=== PATIENT | female | born 1950 | race Caucasian/White ===

== ENCOUNTER 2017-07-28 13:58 | Inpatient (IN) | payer OTHER, BC ==
[~2017-07-28] VITALS: Ht 167.6 cm; Wt 108.9 kg
--- NOTE | ~2017-07-28 | 2DMMODE ---
[facility] [address] [facility] [place] [address] 2 D/M-MODE ECHOCARDIOGRAM Name: STEPHANIE OTTO Room #: 409-P ADM IN M.R.#: [id number] Admission: 07/28/17 Attend Phys: Dennis Gonzales MD Discharge: Date of : 52 Date of Service: 07/29/17 1610 Report #: [id number] THIS REPORT FOR: //name// APPROVED REPORT Study performed: 07/29/2017 14:53:07 EXAM: Comprehensive 2D, Doppler, and color-flow Echocardiogram Patient Location: Echo lab Room #: 409 Status: routine BSA: 2.14 HR: 86 bpm BP: 115/60 mmHg Rhythm: NSR Other Information Study Quality: Adequate Indications Short of breath, chest pressure. Hx: HTN, COPD, morbid obesity 2D Dimensions RVDd: 32.43 mm LVEF(%): 61.88 (>50%) IVSd: 13.00 (7-11mm) LVOT Diam: 22.36 (18-24mm) LVDd: 51.55 mm PWd: 11.00 (7-11mm) Ascending Ao: 31.42 (22-36mm) LVDs: 34.28 (25-40mm) Aortic Root: 30.26 mm Batista's LVEF: 61.88 % Volumes Left Atrial Volume (Systole) Single Plane 4CH: 32.95 mL Single Plane 2CH: 41.20 mL LA ESV Index: 21.00 mL/m2 Aortic Valve AoV Peak Shawn.: 1.40 m/s AO Peak Gr.: 7.85 mmHg LVOT Max P.59 mmHg LVOT Max V: 1.07 m/s OSWALD Vmax: 3.00 cm2 Mitral Valve E/A Ratio: 0.7 MV Decel. Time: 160.51 ms [facility] [employer] [place] [address] 2 D/M-MODE ECHOCARDIOGRAM Name: FAMSTEPHANIE JOHNNY Room #: 409-P [facility] IN .R.#: [id number] Admission: 07/28/17 Attend Phys: Dennis Gonzales MD Discharge: Date of : 52 Date of Service: 07/29/17 1610 Report #: [id number] MV E Max Shawn.: 0.77 m/s MV A Shawn.: 1.07 m/s MV PHT: 46.55 ms IVRT: 93.43 ms Pulmonary Valve PV Peak Shawn.: 1.45 m/s PV Peak Gr.: 8.43 mmHg Pulmonary Vein P Vein S: 0.89 m/s P Vein D: 0.58 m/s P Vein S/D Ratio: 1.53 Tricuspid Valve TR Peak Shawn.: 2.80 m/s RAP Estimate: 5.00 mmHg TR Peak Gr.: 31.46 mmHg PA Pressure: 36.00 mmHg Left Ventricle The left ventricle is normal size. There is normal LV segmental wall motion. Mild concentric left ventricular hypertrophy. Left ventricular systolic function is normal. LVEF is 60-65%. Mild diastolic dysfunction is present (impaired relaxation pattern). Right Ventricle The right ventricle is normal size. The right ventricular systolic function is normal. Atria The left atrium size is normal. The right atrium size is normal. Aortic Valve The aortic valve is normal in structure. Trace aortic regurgitation. There is no aortic valvular stenosis. Mitral Valve The mitral valve is normal in structure. Trace to mild mitral regurgitation. Tricuspid Valve The tricuspid valve is normal in structure. Trace tricuspid regurgitation. Estimated PAP is 35-40mmHg. Pulmonic Valve [address] [address] 2 D/M-MODE ECHOCARDIOGRAM Name: STEPHANIE OTTO Room #: 409-P [facility] IN .R.#: [id number] Admission: 07/28/17 Attend Phys: Dennis Gonzales MD Discharge: Date of : 52 Date of Service: 07/29/17 1610 Report #: [id number] The pulmonary valve is normal in structure. Trace pulmonic regurgitation. Great Vessels The aortic root is normal in size. The ascending aorta is normal in size. IVC is normal in size and collapses >50% with inspiration. Pericardium There is no pericardial effusion. <Conclusion> The left ventricle is normal size. LVEF is 60-65%. The aortic valve is normal in structure. Trace aortic regurgitation. The mitral valve is normal in structure. Trace to mild mitral regurgitation. The tricuspid valve is normal in structure. Trace tricuspid regurgitation. Estimated PAP is 35-40mmHg. The pulmonary valve is normal in structure. Trace pulmonic regurgitation. There is no pericardial effusion. <ELECTRONICALLY SIGNED> By: Harlan Bains MD 07/29/17 161 09 09 Harlan Bains MD /INF
--- NOTE | ~2017-07-28 | CATHLAB ---
[facility] [address] [place] [address] INVASIVE PROCEDURE REPORT Name: STEPHANIE OTTO Room #: 409-P [facility] IN ..#: [id number] Admission: 07/28/17 Attend Phys: Dennis Gonzales MD Discharge: 07/31/17 Date of : 52 Date of Service: 08/03/17 1242 Report #: [id number] THIS REPORT FOR: //name// APPROVED REPORT Study performed: 07/31/2017 10:06:59 Patient Details Patient Status: In-Patient Room #: The patient is a 67 year-old female Event Personnel Harlan Bains Senior Construction Manager, Krzysztof Castro RN, Lynsey Travis Sandifer, David Monitor, Kline, Tiffany RN civil rights attorney Performed Left Heart Cath w/or w/o Coronaries [id number] [facility] Indication Abnormal ECG, Positive stress test Procedure Narrative The Right Groin^ was infiltrated with 1% Lidocaine subcutaneous anesthesia. A PINNACLE 4FR Sheath #[id number] sheath was inserted into the RFA^. Coronary angiography was performed using coronary diagnostic catheters. The right coronary system was accessed and visualized with a JR4 catheter. The left coronary system was accessed and visualized with a JL4 catheter. The left ventricle was accessed and visualized with a PIGTAIL catheter. Left ventricular/Aortic Valve gradient assessed via catheter pullback. Hemostasis was obtained with manual pressure following sheath removal without any complications. The patient tolerated the procedure well and there were no complications associated with the procedure. There was no hematoma. Intraoperative Conscious Sedation Sedation start time: 10.23 Case end Time: 10.33 Versed 2 mg Fluoro Time: 1.40 minutes Dose: DAP 2465 cGycm2 363 mGy Contrast Type and Amount: Omnipaque 50 ml [facility] [place] [address] INVASIVE PROCEDURE REPORT Name: STEPHANIE OTTO Room #: 409-[facility].#: [id number] Admission: 07/28/17 Attend Phys: Dennis Gonzales MD Discharge: 07/31/17 Date of : 52 Date of Service: 08/03/17 1242 Report #: [id number] Coronary Angiography The patient's coronary anatomy is right dominant. Diagnostic Cath Left Main Left main is of normal origin and caliber bifurcates left anterior descending left circumflex free of high-grade disease LAD Moderate caliber type II vessel which is quite tortuous in its course. He gives a susceptible diagonal branches all of which are free of high-grade disease. The LAD courses in the interventricular sulcus without significant stenotic lesions but a serpentine course as it terminates in the apex Diagonal 1 Small to moderate caliber vessel free of high-grade disease Circumflex Moderate caliber nondominant vessel which gives rise to 2 marginal branches as it terminates posteriorly a small vessel. No high-grade stenosis are noted OM1 Her caliber vessel coursing on the lateral aspect of the heart without significant stenotic lesions OM2 Small-caliber vessel without significant stenosis coursing on the posterior lateral aspect of the left ventricle Right Coronary Moderate caliber vessel of normal origin and gives rise to RV branches in its proximal course and then proceeds to the crux of the heart were gives rise to posterior descending artery and small terminal RCA beyond. All of which are free of significant stenotic lesions R PDA Moderate caliber nondominant vessel coursing towards the apex without significant stenotic or flow-limiting lesions noted Left Ventriculography Left Ventriculography was not performed. Hemodynamics The aortic pressure is 165/80 mmHg with a mean of 113 mmHg. The left ventricular pressure is 158/13 mmHg with a mean of mmHg. The left ventricular end diastolic pressure is 28 mmHg. There was no gradient across the aortic valve upon pullback. Pullback from the left ventricle to the aorta revealed no gradient across the aortic valve. Conclusion 1. Essentially normal coronary arteries 2. Normal hemodynamics [facility] [address] [place] [address] INVASIVE PROCEDURE REPORT Name: STEPHANIE OTTO Room #: 409-P [facility] IN M.R.#: [id number] Admission: 07/28/17 Attend Phys: Dennis Gonzales MD Discharge: 07/31/17 Date of : 52 Date of Service: 08/03/17 1242 Report #: [id number] Recommendations Cardiac Risk Reduction Program <ELECTRONICALLY SIGNED> By: Harlan Bains MD 08/03/17 1242 124 41 Harlan Bains MD /INF
--- NOTE | ~2017-07-28 | EKG ---
[place] [address] [facility] [place] [address] ELECTROCARDIOGRAM REPORT Name: STEPHANIE OTTO Room #: 409-P ADM IN M.R.#: [id number] Admission: 07/28/17 Attend Phys: Dennis Gonzales MD Discharge: Date of : 52 Report #: [id number] THIS REPORT FOR: //name// [facility] ED Test Date: 2017-07-28 Test Time: 14:48:31 Pat Name: STEPHANIE OTTO Department: Room: Gender: F Mold Cl[employer] Helper: TALON : 1950 Requested By: Serjio Fay Order Number: [id number] MD: Emir Davey Measurements Intervals [place] Rate: 101 P: 67 OK: 191 QRS: -17 QRSD: 83 T: 77 QT: 372 QTc: 483 Interpretive Statements Sinus tachycardia Borderline left axis deviation Borderline prolonged QT interval Compared to ECG 12/13/2010 16:37:33 Heart rate has increased Electronically Signed On 07-29-2017 8:04:20 CDT by Emir Davey [email or web address] <ELECTRONICALLY SIGNED> By: Emir Davey MD, [facility] 07/29/17 0804 144 47 Emir Davey MD, [facility] /EPI
[~2017-07-28 13:58] MED LIST: ASACOL400 MG PO; CALCIUM 600 +1 EAC1 PO; COLESTID1 GM PO; GLUCOSAMINE &1 EACH PO; PENTASA500 MG PO; POTASSIUM-9999 MG PO; SYNTHROID175 MCG PO; VICODIN 5-5001 EACH PO
[2017-07-28 14:01] VITALS: BP 123/81
[2017-07-28 14:21] LABS: ABSOLUTE NEUTROPHILS 5.9 thou/uL (1.4-8.2); BASOPHILS 0.2 % (0.0-2.0); EOSINOPHILS 0.2 % (0.0-3.0); HEMATOCRIT 39.1 % (37.0-47.0); HEMOGLOBIN 13.1 gm/dL (12.0-15.0); LYMPHOCYTES 5.2 % (24.0-44.0); MCH 31.2 pg (26.0-34.0); MCHC 33.5 g/dL (28.0-37.0); MCV 93.2 fL (80.0-100.0); MONOCYTES 6.7 % (1.0-8.0); PLATELET COUNT 204 thou/uL (150-400); POLYS 87.7 % (36.0-66.0); RDW 15.9 % (10.5-14.5); WBC 6.7 thou/uL (4.0-11.0)
[2017-07-28 14:28] LABS: CALCIUM 9.6 mg/dL (8.5-10.1); CREATININE 0.7 mg/dL (0.6-1.0); POTASSIUM 3.7 mmol/L (3.5-5.1)
[2017-07-28 14:35] LABS: ALBUMIN 3.3 g/dL (3.4-5.0); DIRECT BILIRUBIN 0.3 mg/dL (<0.1-0.3); TOTAL BILIRUBIN 1.3 mg/dL (<0.1-1.0); TOTAL PROTEIN 6.2 g/dL (6.4-8.2)
[2017-07-28] MEDS ORDERED: SULFASALAZINE500 M5 PO (14:40)
[2017-07-28] MEDS ORDERED: FOLIC ACID1 MG PO (14:40)
[2017-07-28] MEDS ORDERED: SYNTHROID175 MCG PO (14:41)
[2017-07-28] MEDS ORDERED: HYDROCHLOROTHIA25 M2 PO (14:41)
[2017-07-28] MEDS ORDERED: TUMS PO (14:42)
[2017-07-28] MEDS ORDERED: VITAMIN D3400 UNIT PO (14:42)
[2017-07-28 14:58] LABS: URINE BLOOD NEGATIVE (Negative); URINE CLARITY CLEAR; URINE COLOR YELLOW; URINE GLUCOSE-RANDOM* NEGATIVE (Negative); URINE KETONES NEGATIVE (Negative); URINE LEUKOCYTES 1+ (Negative); URINE NITRITE NEGATIVE (Negative); URINE PROTEIN (DIPSTICK) NEGATIVE (Negative); URINE SPECIFIC GRAVITY 1.015 (1.005-1.035); URINE UROBILINOGEN 0.2 E.U./dl (0.2-1.0)
[2017-07-28 15:00] LABS: ICTOTEST (BILI CONFIRMATORY) Negative (Negative); URINE BILIRUBIN NEGATIVE (Negative)
[2017-07-28 15:09] LABS: CASTS None Seen /LPF (None Seen); CRYSTALS None Seen /LPF (None Seen); SQUAMOUS 4-10 Moderate /LPF (0-3); URINE RBC None Seen /HPF (0-2); URINE WBC 6-15 Few /HPF (0-5)
[2017-07-28 18:25] VITALS: BP 127/64
[2017-07-28 19:08] VITALS: BP 121/72
[2017-07-28 20:00] VITALS: BP 119/48
[2017-07-28 20:08] LABS: MAGNESIUM 1.9 mg/dL (1.8-2.4); TROPONIN-I < 0.04 ng/mL (<0.06)
[2017-07-28 20:18] LABS: APTT 29.9 Seconds (24.5-32.8); D-DIMER 0.6 ug/mLFEU (0.19-0.50); PROTIME 10.2 Seconds (9.3-11.4)
[2017-07-28] MEDS ORDERED: IMURAN 50MG TAB50 M1 PO (20:22)
[2017-07-28 21:43] LABS: BE(vivo) 4.9 mmol/L (-2 to +3); HCO3 29.2 mmol/L (22.0-26.0); sO2 92.6 % (92.0-98.0)
[2017-07-29 04:08] VITALS: BP 121/51
[2017-07-29 05:29] LABS: ABSOLUTE NEUTROPHILS 5.5 thou/uL (1.4-8.2); BASOPHILS 0.9 % (0.0-2.0); HEMATOCRIT 35.9 % (37.0-47.0); HEMOGLOBIN 11.9 gm/dL (12.0-15.0); LYMPHOCYTES 6.3 % (24.0-44.0); MCH 31.5 pg (26.0-34.0); MCHC 33.1 g/dL (28.0-37.0); MCV 95.2 fL (80.0-100.0); PLATELET COUNT 229 thou/uL (150-400); POLYS 90.8 % (36.0-66.0); RBC 3.77 mil/uL (4.20-5.00); RDW 16.1 % (10.5-14.5)
[2017-07-29 05:51] LABS: ANION GAP 12 mmol/L (7-16); BUN 10 mg/dL (7-18); CALCIUM 8.3 mg/dL (8.5-10.1); CHLORIDE 103 mmol/L (98-107); CO2 26 mmol/L (21-32); CREATININE 0.9 mg/dL (0.6-1.0); GLUCOSE 121 mg/dL (74-106); MAGNESIUM 1.9 mg/dL (1.8-2.4); POTASSIUM 3.2 mmol/L (3.5-5.1); SODIUM 141 mmol/L (136-145); TROPONIN-I < 0.04 ng/mL (<0.06)
[2017-07-29 07:37] VITALS: BP 115/60
[2017-07-29 20:23] VITALS: BP 121/73
[2017-07-30 04:48] VITALS: BP 140/80
[2017-07-30 06:06] LABS: HEMATOCRIT 30.4 % (37.0-47.0); HEMOGLOBIN 10.1 gm/dL (12.0-15.0); MCH 31.7 pg (26.0-34.0); MCHC 33.3 g/dL (28.0-37.0); MCV 95.2 fL (80.0-100.0); RBC 3.2 mil/uL (4.20-5.00); RDW 16.6 % (10.5-14.5); WBC 4.5 thou/uL (4.0-11.0)
[2017-07-30 06:12] LABS: CALCIUM 8.1 mg/dL (8.5-10.1); CREATININE 0.6 mg/dL (0.6-1.0); POTASSIUM 3.7 mmol/L (3.5-5.1)
[2017-07-30 09:29] VITALS: BP 144/78
[2017-07-30 15:58] VITALS: BP 129/63
[2017-07-30 20:00] VITALS: BP 128/65
[2017-07-31] VITALS (12 sets, daily range): BP systolic 138–171; BP diastolic 71–102
[2017-07-31 11:29] LABS: HEMATOCRIT 32.3 % (37.0-47.0); HEMOGLOBIN 10.9 gm/dL (12.0-15.0); MCH 32.1 pg (26.0-34.0); MCHC 33.9 g/dL (28.0-37.0); MCV 94.7 fL (80.0-100.0); RBC 3.41 mil/uL (4.20-5.00)
[2017-07-31 11:45] LABS: % SATURATION 24 % (20-39); IRON 46 ug/dL (50-170); TIBC 191 ug/dL (250-450)
[2017-07-31] MEDS ORDERED: PROTONIX40 M1 PO (13:31)
[2017-07-31] MEDS ORDERED: CIPRO500 MG PO (13:31)
[2017-07-31] MEDS ORDERED: FLAGYL500 MG PO (13:31)
== END 2017-07-31 14:53 | disposition home or self-care (01) | DRG 385 ==
LOC: ER 13:58 → EROBS 18:03 → 4N 18:03 → ENTRNSPT 07-31 14:49 → EDTRNSPTSTS 07-31 14:50 → 4N 07-31 14:53
PROVIDERS: Emergency Medicine; Hospitalist; Internal Medicine Gastroenterology; Nurse Practitioner
PROC: 4A023N7 Measurement of Cardiac Sampling and Pressure, Left Heart, Percutaneous Approach (ICD-10-PCS; principal; 2017-07-31)
DX: K50.90 Crohn's disease, unspecified, without complications (principal); J96.01 Acute respiratory failure with hypoxia; N39.0 Urinary tract infection, site not specified; R18.8 Other ascites; K52.9 Noninfective gastroenteritis and colitis, unspecified; E03.9 Hypothyroidism, unspecified; J44.9 Chronic obstructive pulmonary disease, unspecified; I10 Essential (primary) hypertension; K21.9 Gastro-esophageal reflux disease without esophagitis; K57.90 Diverticulosis of intestine, part unspecified, without perforation or abscess without bleeding; Z90.710 Acquired absence of both cervix and uterus; Z88.0 Allergy status to penicillin; Z87.891 Personal history of nicotine dependence; Z79.899 Other long term (current) drug therapy
CPT/HCPCS: 10091

== ENCOUNTER → 2018-03-19 | Outpatient (CLI) | payer OTHER, BC ==
[~2018-03-19] VITALS: Ht 167.6 cm; Wt 97.5 kg
[~2018-03-19] MED LIST changes: +AZATHIOPRINE50 MG PO; +CIPRO500 MG PO; +FLAGYL500 MG PO; +FOLIC ACID1 MG PO; +HYDROCHLOROTHIA25 M2 PO; +IMURAN 50MG TAB50 M1 PO; +PROTONIX40 M1 PO; +SULFASALAZINE500 M5 PO; +TUMS PO; +VITAMIN D3400 UNIT PO
[2018-03-19 08:13] VITALS: BP 140/87
[2018-03-19 08:28] LABS: HEMATOCRIT 36.4 % (37.0-47.0); MCH 28.7 pg (26.0-34.0); RBC 4.18 mil/uL (4.20-5.00); RDW 17.7 % (10.5-14.5); WBC 8.2 thou/uL (4.0-11.0)
[2018-03-19 08:42] LABS: APTT 34.1 Seconds (24.5-32.8); PROTIME 10.9 Seconds (9.3-11.4)
[2018-03-19 08:45] LABS: CALCIUM 9.2 mg/dL (8.5-10.1); CREATININE 0.8 mg/dL (0.6-1.0); POTASSIUM 3.1 mmol/L (3.5-5.1)
[2018-03-19 09:10] VITALS: BP 142/91
[2018-03-19 09:33] VITALS: BP 157/74
[2018-03-19 09:35] VITALS: BP 142/80
[2018-03-19 09:40] VITALS: BP 141/86
--- NOTE | 2018-03-19 10:15 | NUR ---
PT BACK FROM IR, SMALL BANDAID UPPER ABDOMEN, PT ALERT AND ORIENTED X 3, DENIES PAIN, VSS, WILL CONTINUE TO MONITOR.
--- NOTE | 2018-04-16 16:50 | PATH ---
[facility] [place] [address] PATHOLOGY RPT PROCEDURE Name: STEPHANIE OTTO Room #: REG Beth MSusanR.#: [id number] ������������������ Admission: 03/19/18 ������������������ Date of : 52 Discharge: Report #: [id number] Path Case #: [id number] [facility] Accession Number: [id number] . 01 Material submitted: . LIVER BX . 01 Clinical history: . Liver lesion . 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 PLEASE SEE COMMENT. . . SYNOPTIC FOR NON-HODGKIN LYMPHOMA/LYMPHOID NEOPLASMS: Biopsy . Specimen ___ Other (specify): Liver Procedure ___ Biopsy Tumor Site ___ Other tissue or organ: Liver Histologic Type ___ Mature B-cell neoplasms ___ Other (specify): High grade B-cell lymphoma Immunophenotyping (flow cytometry and/or immunohistochemistry) ___ Performed Specify method and results: Immunohistochemical stains (please see comment) + Cytogenetic Studies + ___ Not performed + Molecular Genetic Studies + ___ Not performed LB/03/24/2018 . 02 Comment: Examination of the liver biopsy shows proliferation of medium to large sized neoplastic lymphoid cells with fairly round to slightly irregular nuclear borders, occasional prominent nucleoli, and small to moderate amount of cytoplasms. Background mitotic figures are identified. Immunohistochemical stains with appropriate controls show: . (Block A1) CD45 - Positive Vimentin - Positive CD20 - Positive [address] [address] PATHOLOGY RPT PROCEDURE Name: STEPHANIE OTTO Room #: REG [facility]..#: [id number] ������������������ Admission: 03/19/18 ������������������ Date of : 52 Discharge: Report #: [id number] Path Case #: [id number] BCL-6 - Positive CD10 - Negative BCL-2 - Negative CD3 - Highlights T-lymphoid cells CD5 - Highlights T-lymphoid cells BCL-1 - Negative AE1-AE3 - Negative MART-1 - Negative CK7 - Negative CK20 - Negative MUM-1 - Negative Ki-67 - Approximately 80-90% proliferation fraction . Based on the morphology and immunohistochemical staining pattern, these findings are consistent with involvement by high grade B cell lymphoma,favor diffuse large B-cell lymphoma. FISH for agressive B cell lymphoma is pending to exclude or rule in the possibility of double or triple hit lymphoma and an addendum report will be submitted separately. . Dr. Luna Ashley discussed preliminary findings with Dr. Dennis on 03/24/18 at 1:30 pm. (JMGricel/db; 03/24/18) . Co-review: Dr. Priscilla Greenfield and Dr. Luna Ashley . . 02 Addendum: . Special studies report received from [facility], [address] [place] [address], [address], [place], [address], on case [id number], labeled with their number [id number], dated 04/02/2018. . Fluorescence in situ Hybridization (FISH) Report [employer]Gene Analysis . RESULT: No assay specific abnormalities detected by Aggressive B-cell Lymphoma FISH panel. . Specimen Type: Tissue, Liver . Indication for Study: B-cell lymphoma . INTERPRETATION: Fluorescence in situ hybridization (FISH) analysis was performed on this patient's specimen using DNA probes for aggressive B-cell lymphoma panel. One hundred interphase nuclei were examined for each probe and the signal patterns did not reveal any assay specific abnormalities. Based on the performance characteristics established on this assay, all test values [address] [address] PATHOLOGY RPT PROCEDURE Name: STEPHANIE OTTO Room #: REG [facility].#: [id number] ������������������ Admission: 03/19/18 ������������������ Date of : 52 Discharge: Report #: [id number] Path Case #: [id number] were within the normal reference range. . Genetic changes other than those assayed here cannot be ruled out on the basis of this testing. Correlation with cytogenetic, clinical and hematopathological findings is suggested for a complete interpretation of the results. . The following [employer] FISH analysis was performed on this patient's specimen: Probe Detection Parameters Result ISCN BCL2 (18q21) Detects a rearrangement Not Detected nuc yoselyn(5'BCL2, of the BCL2 gene 3'BCL2)x2(5'BCL2 con 3'BCL2x2) (100) MYC (8q24) Detects a rearrangement Not Detected nuc yoselyn(5'MYC, of the MYC gene 3'MYC)x2(5'MYC con 3'MYCx2)(100) BCL6 (3q27) Detects a rearrangement Not Detected nuc yoselyn(5'BCL6, of the BCL6 gene 3'BCL6)x2(5'BCL6 con 3'BCL6x2)(100) . . Electronically Signed by Amanda Deal, PhD, [facility] on 04/02/2018 at [facility], [facility]. Amanda Deal, PhD, FAC Director of Clinical Cytogenetics . Methodology: The patient specimen is processed onto a glass slide. Fluorescent DNA probe(s) is(are) applied to the cells on the slide under conditions of denaturation followed by hybridization. Stringency washes are applied and the slide is subsequently counterstained. A minimum of 100 interphase nuclei are analyzed unless otherwise indicated above. . Intended Use: This assay is considered qualitative and is not intended to be used as a measure of quantitative comparison. . Disclaimer This Test was performed by [facility], [facility]. at [address] [place] [address], [id number]. [facility] [employer] is a business unit of [employer] a wholly-owned subsidiary of [employer]. . . Any images(s) that accompany this report is/are a sales support representative image(s) only and should not be used to render a diagnosis. [facility] [place] [address] [place] [address] PATHOLOGY RPT PROCEDURE Name: STEPHANIE OTTO [facility] [id number] ������������������ Admission: 03/19/18 ������������������ Date of : 52 Discharge: Report #: [id number] Path Case #: [id number] . This test was developed and its performance characteristics determined by [facility] It has not been cleared or approved by the Food and Drug Administration. . A complete copy of the report is on file. . Professional services performed by [employer] at [address], [place] [address]. Technical services performed by [employer], [facility]. at [address], [place] [address]. . (AMJ 04/05/2018) JQC/04/05/2018 Addendum Electronically Signed by Rosa Rascon MD ([facility]) . 02 Electronically signed: . Rosa Rascon MD, Pathologist NPI- [id number] . 01 Gross description: . The specimen is received in formalin, labeled "Stephanie Otto, liver BX" and consists of 3 needle cores of cazares-brown tissue measuring 1.7 cm in length and 0.1 cm each in diameter which are entirely submitted in A1. (SDY; 03/19/2018) SYU/SYU . 02 Pathologist provided ICD-10: C85.19 . 02 CPT . 037204 Specimen Comment: A courtesy copy of this report has been sent to Specimen Comment: [phone]. Specimen Comment: Report sent to Specimen Comment: A duplicate report has been generated due to demographic updates. Performed at: [address], [place], [place] [id number] MD Thierno Jones MD Phone: [phone] Performed at: 02 [facility] [address] [place] [address], [place], [place] [id number] MD Rosa Rsacon MD Phone: [phone]
== END | disposition home or self-care (01) ==
LOC: ULTRA 07:45
DX: C85.19 Unspecified B-cell lymphoma, extranodal and solid organ sites (principal); E03.9 Hypothyroidism, unspecified; K50.90 Crohn's disease, unspecified, without complications; I10 Essential (primary) hypertension; J44.9 Chronic obstructive pulmonary disease, unspecified; Z85.828 Personal history of other malignant neoplasm of skin; Z90.710 Acquired absence of both cervix and uterus; Z90.49 Acquired absence of other specified parts of digestive tract; Z87.19 Personal history of other diseases of the digestive system; Z98.890 Other specified postprocedural states; Z79.899 Other long term (current) drug therapy; Z87.891 Personal history of nicotine dependence; Z88.0 Allergy status to penicillin

== ENCOUNTER → 2019-04-05 | Outpatient (CLI) | payer OTHER, BC ==
--- NOTE | 2019-04-09 15:05 | PFR/MVV ---
[facility] [place] [address] PULMONARY FUNCTION MVV/REPORT Name: STEPHANIE OTTO Room #: REG [facility]#: [id number] Admission: 04/05/19 Attend Phys: Valeria Moreno MD Discharge: Date of : 52 Report #: [id number] THIS REPORT FOR: //name// >> SPIROMETRY: (BTPS) Height: in cm Weight: lbs kg Exam Date: PRE-RX POST-RX PRED BEST %PRED BEST %PRED %CHG FVC LITERS . . . . . . FEV1 LITERS . . . . . . FEV1/FVC % . . . . . . RXR29-41% L/Sec . . . . . . PEF L/SEC . . . . . . FEF50/FIF50 UNITLESS . . . . . . MVV L/Min . . . f 1/Min . . . >> LUNG VOLUMES: (BTPS) PRE-RX POST-RX PRED AVG %PRED AVG %PRED %CHG VC Liters . . . . . . TLC Liters . . . . . . RV Liters . . . . . . RV/TLC % . . . . . . FRC PL Liters . . . . . . FRC N2 Liters . . . . . . ERV Liters . . . . . . IC Liters . . . . . . >> DIFFUSION: DLCO ml/Min/mmHg . . . . . . DL Nathalia ml/Min/mmHg . . . . . . DLCO/VA ml/Min/mmHg . . . . . . VA Liters . . . . . . COMMENTS: COMMENTS: >> RESISTANCE: [facility] [address] [place] [address] PULMONARY FUNCTION MVV/REPORT Name: STEPHANIE OTTO Room #: REG [facility]#: [id number] Admission: 04/05/19 Attend Phys: Valeria Moreno MD Discharge: Date of : 52 Report #: [id number] PRE-RX PRED AVG %PRED Raw Total cmH20/L/Sec . . . Raw Insp cmH20/L/Sec . . . Raw Exp cmH20/L/Sec . . . Raw cmH20/L/Sec . . . Gaw L/Sec/cmH20 . . . sRaw cmH20 Sec . . . sGaw l/cmH20 Sec . . . Vtq Liters . . . # = OUTSIDE 95% CONFIDENCE INTERVAL CALIBRATION: PRED: 3.00 ACTUAL: EXP 3.01 INSP 3.02 [facility]-OL11-21 [facility]- N-1804-4 >> INTERPRETATION/IMPRESSION: CC: Valeria Moreno Claudia Rivas DATE OF SERVICE: 04/05/2019 PHYSICIAN: Valeria Moreno MD SPIROMETRY: FEV1 is 1.06 liters (47%), FVC is 1.76 liters (56%). Post-bronchodilator therapy FEV1 increased to 1.23 liters (16% change), FVC increased to 2.04 liters (15% change), FEV1/FVC ratio 60%. LUNG VOLUMES: Total lung capacity is 4.38 liters (84%). RV is 1.97 liters (95%). Diffusing capacity 75%. IMPRESSION: Pulmonary function studies are consistent with a severe obstructive airflow defect, with normal lung volumes. There is a significant response to bronchodilator therapy. Diffusing capacity is mildly decreased. <ELECTRONICALLY SIGNED> By: Manish Flores MD 04/09/19 1505 Manish Flores MD /nt
== END ==
LOC: PUL 06:47
DX: C83.39 Diffuse large B-cell lymphoma, extranodal and solid organ sites (principal)

== ENCOUNTER → 2019-07-25 | Outpatient (CLI) | payer OTHER, BC | LOC: SJCVCIMAG 10:39 | PROVIDERS: ATTEND Internal Medicine Cardiovascular Disease | DX: I08.1 Rheumatic disorders of both mitral and tricuspid valves (principal); I44.4 Left anterior fascicular block; R94.31 Abnormal electrocardiogram [ECG] [EKG]; I42.9 Cardiomyopathy, unspecified; I49.49 Other premature depolarization; R00.0 Tachycardia, unspecified; I11.0 Hypertensive heart disease with heart failure; I50.1 Left ventricular failure, unspecified; Z90.49 Acquired absence of other specified parts of digestive tract; Z79.899 Other long term (current) drug therapy; Z87.891 Personal history of nicotine dependence ==

== ENCOUNTER → 2019-08-03 | Outpatient (CLI) | payer OTHER, BC | LOC: SJCVC 12:44 | PROVIDERS: ATTEND Internal Medicine Cardiovascular Disease | DX: I42.9 Cardiomyopathy, unspecified (principal); Z87.891 Personal history of nicotine dependence; I10 Essential (primary) hypertension; Z88.0 Allergy status to penicillin ==

== ENCOUNTER → 2019-08-17 | Outpatient (CLI) | payer OTHER, BC | LOC: SJCVCIMAG 10:43 → SJCVC 10:43 | PROVIDERS: ATTEND Internal Medicine Cardiovascular Disease | DX: M79.604 Pain in right leg (principal); M79.605 Pain in left leg; R60.9 Edema, unspecified; I44.4 Left anterior fascicular block; R94.31 Abnormal electrocardiogram [ECG] [EKG]; I11.0 Hypertensive heart disease with heart failure; I50.9 Heart failure, unspecified; I42.9 Cardiomyopathy, unspecified; I10 Essential (primary) hypertension; Z79.899 Other long term (current) drug therapy; Z82.49 Family history of ischemic heart disease and other diseases of the circulatory system; Z87.891 Personal history of nicotine dependence ==

== ENCOUNTER → 2019-08-24 | Outpatient (CLI) | payer OTHER, BC | LOC: SJCVC 08:53 | PROVIDERS: ATTEND Internal Medicine Cardiovascular Disease | DX: Z51.81 Encounter for therapeutic drug level monitoring (principal); Z79.01 Long term (current) use of anticoagulants ==

== ENCOUNTER → 2019-10-18 | Outpatient (CLI) | payer OTHER, BC | LOC: SJCVC 09:47 | PROVIDERS: ATTEND Internal Medicine Cardiovascular Disease | DX: I42.8 Other cardiomyopathies (principal); I11.0 Hypertensive heart disease with heart failure; I50.9 Heart failure, unspecified; Z87.891 Personal history of nicotine dependence ==

== ENCOUNTER → 2019-10-20 | Outpatient (CLI) | payer OTHER, BC | LOC: SJCVC 13:33 | PROVIDERS: ATTEND Internal Medicine Cardiovascular Disease | DX: I25.89 Other forms of chronic ischemic heart disease (principal); I10 Essential (primary) hypertension; I42.9 Cardiomyopathy, unspecified; R00.0 Tachycardia, unspecified; R60.9 Edema, unspecified; Z88.0 Allergy status to penicillin; Z90.49 Acquired absence of other specified parts of digestive tract ==

== ENCOUNTER → 2020-01-19 | Outpatient (CLI) | payer OTHER, BC | LOC: SJCVCIMAG 10:11 | PROVIDERS: ATTEND Internal Medicine Cardiovascular Disease | DX: I08.1 Rheumatic disorders of both mitral and tricuspid valves (principal); R94.31 Abnormal electrocardiogram [ECG] [EKG]; I42.9 Cardiomyopathy, unspecified; I11.0 Hypertensive heart disease with heart failure; I50.9 Heart failure, unspecified; Z79.899 Other long term (current) drug therapy; Z87.891 Personal history of nicotine dependence ==

== ENCOUNTER → 2020-08-03 | Outpatient (CLI) | payer OTHER, BC | LOC: SJCVCIMAG 07:50 | PROVIDERS: ATTEND Internal Medicine Cardiovascular Disease | DX: I34.0 Nonrheumatic mitral (valve) insufficiency (principal); R94.31 Abnormal electrocardiogram [ECG] [EKG]; I42.8 Other cardiomyopathies; I11.0 Hypertensive heart disease with heart failure; I50.9 Heart failure, unspecified; R53.83 Other fatigue; R60.9 Edema, unspecified; E03.9 Hypothyroidism, unspecified; Z90.49 Acquired absence of other specified parts of digestive tract; Z90.710 Acquired absence of both cervix and uterus; Z88.0 Allergy status to penicillin; Z79.899 Other long term (current) drug therapy; Z92.21 Personal history of antineoplastic chemotherapy; Z87.891 Personal history of nicotine dependence; Z85.72 Personal history of non-Hodgkin lymphomas; Z82.49 Family history of ischemic heart disease and other diseases of the circulatory system ==

== ENCOUNTER → 2021-01-30 | Outpatient (CLI) | payer OTHER, BC | LOC: SJCVC 10:23 | PROVIDERS: ATTEND Internal Medicine Cardiovascular Disease | DX: I42.9 Cardiomyopathy, unspecified (principal); I11.0 Hypertensive heart disease with heart failure; I50.9 Heart failure, unspecified; R60.9 Edema, unspecified; Z88.0 Allergy status to penicillin; Z79.899 Other long term (current) drug therapy; Z87.891 Personal history of nicotine dependence; Z72.89 Other problems related to lifestyle ==